=== PATIENT | male | born 1955 | race African-American/Black ===

== ENCOUNTER 2018-11-23 16:47 | Emergency (ER) | payer MEDICARE, OTHER ==
[~2018-11-23] VITALS: Ht 177.8 cm; Wt 99.8 kg
[~2018-11-23 16:47] MED LIST: IBUPROFEN600 MG ORAL; NORCO 5-325 TA1 EACH ORAL
--- NOTE | 2018-11-23 16:50 | NUR ---
ED Nurse Note: Patient walked into ED from home c/o left middle finger splinter that he sustained earlier today, patient rates his pain a 8/10 pain. Cybel notified of pain, patient presents with no fever, patient is alert and oriented x4, ambulatory with a steady gait, VSS. will wait for further orders
[2018-11-23] MEDS ORDERED: NKM (16:55)
[2018-11-23 17:00] VITALS: BP 119/83
[2018-11-23] MEDS ORDERED: CEPHALEXIN500 M1 ORAL (18:01)
[2018-11-23 18:05] VITALS: BP 125/82
--- NOTE | 2018-11-23 18:05 | NUR ---
ER DISCHARGE NOTE: Patient is cleared to be discharged per ERMD, pt is aox4, on room air, with stable vital signs. pt was given dc and prescription instructions, pt was able to verbalize understanding, pt id band removed without complications. pt is able to ambulate with steady gait. pt took all belongings.
--- NOTE | 2018-11-23 18:08 | Diagnostic Imaging Report ---
History: PAIN Exam: XR LEFT HAND 3 views Comparison: 12 08 2013 FINDINGS: No fracture or dislocation. Joint spaces appear within limits. IMPRESSION: No fracture or dislocation.
--- NOTE | 2018-11-23 18:46 | Emergency Room Report ---
History of Present Illness General Chief Complaint: Pain Source: Patient Present Illness HPI 63-year-old male complaining of left third finger pain since today. Patient states that he was working with wood and possibly may have gotten splinter underneath the fingernail. Pain is 8/10, with pressure. Denies numbness or weakness. Allergies: Coded Allergies: No Known Allergies (Unverified , 11/23/18) Patient History Past Medical History: other - chronic back pain Past Surgical History: none Social History: Denies: smoking, alcohol use, drug use Nursing Documentation-[facility] Past Medical History: No History, Except For Review of Systems All Other Systems: negative except mentioned in HPI Physical Exam Vital Signs Date Time Temp Pulse Resp B/P (MAP) Pulse Ox O2 Delivery O2 Flow Rate FiO2 11/23/18 16:52 98.2 87 18 119/83 (95) 97 Room Air Sp02 EP Interpretation: reviewed, normal General Appearance: no apparent distress, alert, GCS 15, non-toxic Respiratory: chest non-tender, lungs clear, normal breath sounds, speaking full sentences Cardiovascular #1: regular rate, rhythm, no edema Skin: other - left third finger: hyperpigmented line on middle of left third finger nail Medical Decision Making PA Attestation This patient was seen under the direct supervision of Dr. Herrera, who directed all aspects of care and diagnostic interpretation. Dr. Herrera examined the patient and agreed with ER course and disposition. Diagnostic Impression: Primary Impression: Finger pain ER Course ED course HPI: 63-year-old male complaining of left third finger pain since today. Patient states that he was working with wood and possibly may have gotten splinter underneath the fingernail. Pain is 8/10, with pressure. Denies numbness or weakness. Ddx: Foreign body, paronychia, cellulitis HPI & PE consistent with: Finger pain Orders/ Interventions: None Patient also seen and examined by Dr. Herrera, who agreed with no intervention indicated at this time. Disposition: Soak finger in warm water. Prescription for Keflex given, take as Rx. At this time pt. is stable for d/c to home. Will provide printed patient care instructions, and any necessary prescriptions. Care plan and follow up instructions have been discussed with the patient prior to discharge. Please note that this Emergency Department Report was dictated using Fan[employer] slide machine tender technology software, occasionally this can lead to erroneous entry secondary to interpretation by the dictation equipment. Other X-Ray Diagnostic Results Other X-Ray Diagnostic Results : X-Ray ordered: left hand # of Views/Limited Vs Complete: 3 View Indication: Pain EP Interpretation: Yes PA Xray: Interpretation reviewed, by supervising MD - Dr. Herrera Interpretation: no dislocation, no fractures, other - no foreign body Impression: No acute disease Electronically Signed by: Jonah Cook PA-C Last Vital Signs Date Time Temp Pulse Resp B/P (MAP) Pulse Ox O2 Delivery O2 Flow Rate FiO2 11/23/18 18:05 98.2 79 18 125/82 97 Room Air Status: unchanged Disposition: HOME, SELF-CARE Condition: Stable Scripts Cephalexin* (CEPHALEXIN*) 500 Mg Tablet 500 MG ORAL EVERY 8 HOURS for 7 Days, #21 CAP Prov: Jonah Cook 11/23/18 Referrals: [facility] (PCP) Patient Instructions: Fingertip Infection Additional Instructions: Take medication as prescribed. Follow-up with PCP in 2 days return to ER if worsening symptoms, new symptoms or sudden change in condition. Jonah Cook Nov 23, 2018 18:46
== END 2018-11-23 18:05 | disposition home or self-care (01) ==
LOC: EMR 18:00
DX: M79.645 Pain in left finger(s) (principal)
CPT/HCPCS: 99283

== ENCOUNTER 2018-12-06 16:42 | Emergency (ER) | payer MEDICARE, OTHER ==
[~2018-12-06] VITALS: Ht 170.2 cm; Wt 90.7 kg
[~2018-12-06 16:42] MED LIST changes: +CEPHALEXIN500 M1 ORAL; +NKM
[2018-12-06 16:58] VITALS: BP 162/103
--- NOTE | 2018-12-06 17:20 | NUR ---
ED Nurse Note: Patient walked into ED from home c/o unable to urinate since this morning. patient reports hx of BPH. patient is alert awake x4 ambulatory, breathing unlabored and even, speakin g in full sentences.
--- NOTE | 2018-12-06 17:30 | NUR ---
ED Nurse Note: RN inserted f/c coude size #16. Patient tolerated the procedure without difficulty. Patient reports decreased pain at this time.
--- NOTE | 2018-12-06 17:47 | NUR ---
ED Nurse Note: UA SENT TO LAB
[2018-12-06 18:13] LABS: APPEARANCE,URINE CLEAR; BILIRUBIN, URINE NEGATIVE (NEGATIVE); COLOR,URINE PALE YELLOW; GLUCOSE, URINE (UA) NEGATIVE (NEGATIVE); KETONES,URINE NEGATIVE (NEGATIVE); LEUKOCYTE ESTERASE ,URINE NEGATIVE (NEGATIVE); NITRITE,URINE NEGATIVE (NEGATIVE); PH,URINE 5 (4.5-8.0); PROTEIN,URINE 1+ (NEGATIVE); UROBILINOGEN,URINE NORMAL MG/DL (0.0-1.0)
--- NOTE | 2018-12-06 18:15 | Emergency Room Report ---
History of Present Illness General Chief Complaint: Male Urogenital Problems Present Illness HPI 63 YO male presents to the ED c/o 10/13 in severity lower abdominal pain with inability to urinate x 1 day. pt. denies fevers, chills, N/V, constipation or diarrhea. Pt. reports hx. of BPH and chronic back pain. Pt. reports that he drank beer and in the past when he drinks beer he has difficulty urinating. pt. denies hematuria or dysuria. Pt. states he is noncompliant with his BPH medications. No other aggravating or relieving factors at this time. pt. states his "bladder is very full". (Irina Phillips) Allergies: Coded Allergies: No Known Allergies (Unverified , 11/23/18) Patient History Past Medical History: see triage record, other - BPH, chronic back pain. Past Surgical History: none Pertinent Family History: none Reviewed Nursing Documentation: PMH: Agreed; PSxH: Agreed (Irina Phillips) Review of Systems All Other Systems: negative except mentioned in HPI (Irina Phillips) Physical Exam Vital Signs Date Time Temp Pulse Resp B/P (MAP) Pulse Ox O2 Delivery O2 Flow Rate FiO2 12/06/18 16:58 98.2 98 20 162/103 (122) 99 Sp02 EP Interpretation: reviewed, normal General Appearance: no apparent distress, alert, GCS 15, non-toxic Head: normocephalic, atraumatic Eyes: bilateral eye normal inspection, bilateral eye PERRL ENT: hearing grossly normal, normal voice Neck: full range of motion Respiratory: lungs clear, normal breath sounds, speaking full sentences Cardiovascular #1: regular rate, rhythm, no edema Gastrointestinal: normal bowel sounds, non tender, soft, non-distended, no guarding Genitourinary: normal inspection, no CVA tenderness, other - Black catheter now inserted. Musculoskeletal: back normal, gait/station normal, normal range of motion, non- tender Neurologic: alert, oriented x3, responsive, motor strength/tone normal, sensory intact, speech normal, grossly normal Psychiatric: judgement/insight normal Skin: no rash Lymphatic: no adenopathy (Irina Phillips) Medical Decision Making PA Attestation Dr. Hartman Is my supervising Physician whom patient management has been discussed with. (Irina Phillips) Medicare Attestation The history of Winston Raymundo has been reviewed and management options for him have been examined and discussed by Teetee Hartman. I have personally examined and interviewed the patient. (Teetee Hartman DO) Diagnostic Impression: Primary Impression: Urinary obstruction, unspecified ER Course 63 YO male presents to the ED c/o 10/13 in severity lower abdominal pain with inability to urinate x 1 day. pt. denies fevers, chills, N/V, constipation or diarrhea. Pt. reports hx. of BPH and chronic back pain. Pt. reports that he drank beer and in the past when he drinks beer he has difficulty urinating. pt. denies hematuria or dysuria. Pt. states he is noncompliant with his BPH medications. No other aggravating or relieving factors at this time. pt. states his "bladder is very full". Ddx considered but are not limited to BPH, UTI, urinary outlet obstruction, renal stone, cancer just to name a few. Vital signs: are WNL, pt. is afebrile H&PE are most consistent with urinary retention requiring Black catheter insertion. ORDERS: -UA: Unremarkable ED INTERVENTIONS: --Black catheter insertion--patient immediately had 400 cc of urine upon insertion. Patient reports his abdominal discomfort has subsided. DISCHARGE: At this time pt. is stable for d/c to home. Will provide printed patient care instructions, and any necessary prescriptions. Care plan and follow up instructions have been discussed with the patient prior to discharge. Labs Test 12/06/18 17:19 Urine Color Pale yellow Urine Appearance Clear Urine pH 5 (4.5-8.0) Urine Specific [place] 1.010 (1.005-1.035) Urine Protein 1+ (NEGATIVE) Urine Glucose (UA) Negative (NEGATIVE) Urine Ketones Negative (NEGATIVE) Urine Blood 1+ (NEGATIVE) Urine Nitrite Negative (NEGATIVE) Urine Bilirubin Negative (NEGATIVE) Urine Urobilinogen Normal MG/DL (0.0-1.0) Urine Leukocyte Esterase Negative (NEGATIVE) Urine RBC 2-4 /HPF (0 - 0) Urine WBC 0-2 /HPF (0 - 0) Urine Squamous Epithelial Cells None /LPF (NONE/OCC) Urine Bacteria Few /HPF (NONE) (Irina Phillips) Last Vital Signs Date Time Temp Pulse Resp B/P (MAP) Pulse Ox O2 Delivery O2 Flow Rate FiO2 12/06/18 16:58 98.2 98 20 162/103 (122) 99 (Irina Phillips) Disposition: HOME, SELF-CARE Condition: Stable Patient Instructions: Acute Urinary Retention, Male, [id number] Additional Instructions: Take any previously prescribed medications as directed. Follow up with a Primary Care Provider within 3 days For a referral to have UROLOGIST Evaluation, even if your symptoms have resolved. BLACK CATHETER TO BE REMOVED BY UROLOGIST THIS WAS PLACED EMERGENTLY DUE TO OBSTRUCTION AND REQUIRES URGENT FOLLOW UP and EVALUATION --Please review list of primary care clinics, if you do not already have a primary care provider Return sooner to ED if new symptoms occur, or current symptoms become worse. - Please note that this Emergency Department Report was dictated using Foldaxwarp worker technology software, occasionally this can lead to erroneous entry secondary to interpretation by the dictation equipment. Irina Phillips Dec 06, 2018 18:15 Teetee Hartman DO Dec 17, 2018 21:34
--- NOTE | 2018-12-06 19:13 | NUR ---
ED Nurse Note: received patient from [facility]. patient laying in bed with no acute distress. messer intact and patent; draining well to gravity. replaced drainage bag with leg bag. educated pt on how to drain bag; pt able to return demonstrate.
[2018-12-06 19:19] VITALS: BP 162/103
--- NOTE | 2018-12-06 19:20 | NUR ---
ER DISCHARGE NOTE: Patient is cleared to be discharged per ERMD, pt is aox4, on room air, with stable vital signs. pt was given dc and prescription instructions, pt was able to verbalize understanding, pt id bandremoved. pt is able to ambulate with steady gait. pt took all belongings.
== END 2018-12-06 19:20 | disposition home or self-care (01) ==
LOC: EMR 18:58
DX: N13.9 Obstructive and reflux uropathy, unspecified (principal); N40.0 Benign prostatic hyperplasia without lower urinary tract symptoms; G89.29 Other chronic pain; M54.9 Dorsalgia, unspecified; Z91.14 Patient's other noncompliance with medication regimen
CPT/HCPCS: 51702; 81003; 99284

== ENCOUNTER 2018-12-13 17:08 | Emergency (ER) | payer MEDICARE, OTHER ==
[~2018-12-13] VITALS: Ht 177.8 cm; Wt 95.3 kg
--- NOTE | 2018-12-13 17:37 | NUR ---
ED Nurse Note: pt presents to ED c/o blood in his urine x 1 day. pt reports having a catheter removed at his urologist's office yesterday. pt is a pt of Dr. Acevess urology) who he called and left a message for. pt describes that he went to urinate and "shot out" a couple of blood clots. pt denies any pain or swelling of his urethra.
[2018-12-13 18:27] LABS: APPEARANCE,URINE CLEAR; BILIRUBIN, URINE NEGATIVE (NEGATIVE); COLOR,URINE PALE YELLOW; GLUCOSE, URINE (UA) NEGATIVE (NEGATIVE); KETONES,URINE NEGATIVE (NEGATIVE); LEUKOCYTE ESTERASE ,URINE 2+ (NEGATIVE); NITRITE,URINE NEGATIVE (NEGATIVE); PH,URINE 6.5 (4.5-8.0); PROTEIN,URINE 1+ (NEGATIVE); UROBILINOGEN,URINE NORMAL MG/DL (0.0-1.0)
--- NOTE | 2018-12-13 18:44 | Emergency Room Report ---
History of Present Illness General Chief Complaint: Male Urogenital Problems Source: Medical Record (Magnus Guzman) Present Illness HPI 63-year-old male with no significant past medical history who was here at [facility] few days ago had a Philippe catheter placed due to being unable to urinate here complaining of hematuria x1 day. Patient reports that he went to his urologist yesterday removed. Patient has blood in urine and has been having some intermittent clotting however reports that today he started getting better denies any painful urination and frequency however feels pressure at the tip of his penis. Reports that he feels like there is a clot in there and he is requesting x-ray or some sort of imaging of the penile area. Denies fever and chills, flank pain, nausea vomiting. Patient sitting comfortably with stable vital signs. Patient has an upcoming appointment with urologist. Also has history of BPH and currently takes medication. (Magnus Guzman) Allergies: Coded Allergies: No Known Allergies (Unverified , 11/23/18) Patient History Past Medical History: see triage record Past Surgical History: unable to obtain Pertinent Family History: none Immunizations: UTD Reviewed Nursing Documentation: PMH: Agreed; PSxH: Agreed (Magnus Guzman) Nursing Documentation-PMH Past Medical History: No History, Except For (Magnus Guzman) Review of Systems All Other Systems: negative except mentioned in HPI (Magnus Guzman) Physical Exam Vital Signs Date Time Temp Pulse Resp B/P (MAP) Pulse Ox O2 Delivery O2 Flow Rate FiO2 12/13/18 17:47 98.2 75 16 140/84 (102) 95 Room Air Sp02 EP Interpretation: reviewed, normal General Appearance: no apparent distress, alert, GCS 15, non-toxic Head: normocephalic, atraumatic Eyes: bilateral eye normal inspection, bilateral eye PERRL ENT: hearing grossly normal, normal pharynx, no angioedema, normal voice Neck: full range of motion, supple/symm/no masses Respiratory: chest non-tender, lungs clear, normal breath sounds, no rhonchi, speaking full sentences Cardiovascular #1: normal inspection, normal peripheral pulses, regular rate, rhythm, no murmur Gastrointestinal: normal inspection, normal bowel sounds, non tender, soft Rectal: deferred Genitourinary: normal inspection, no CVA tenderness Musculoskeletal: back normal, gait/station normal, normal range of motion, non- tender Neurologic: alert, oriented x3, responsive, motor strength/tone normal, sensory intact, speech normal Psychiatric: judgement/insight normal, memory normal, mood/affect normal, no suicidal/homicidal ideation Skin: no rash Lymphatic: no adenopathy (Magnus Guzman) Medical Decision Making PA Attestation Diagnosis and treatment plans were reviewed and discussed with my supervising physician Dr. Herrera (Magnus Guzman) Medicare Attestation The history of Winston Raymundo has been reviewed and management options for him have been examined and discussed by Neal Herrera. I have personally examined and interviewed the patient. (Neal Herrera MD) Diagnostic Impression: Primary Impression: UTI (urinary tract infection) Additional Impression: Hematuria ER Course 63-year-old male with no significant past medical history who was here at [facility] few days ago had a Philippe catheter placed due to being unable to urinate here complaining of hematuria x1 day. Patient reports that he went to his urologist yesterday removed. Patient has blood in urine and has been having some intermittent clotting however reports that today he started getting better denies any painful urination and frequency however feels pressure at the tip of his penis. Reports that he feels like there is a clot in there and he is requesting x-ray or some sort of imaging of the penile area. Denies fever and chills, flank pain, nausea vomiting. Patient sitting comfortably with stable vital signs. Patient has an upcoming appointment with urologist. Also has history of BPH and currently takes medication. Ddx considered but are not limited to: UTI, pylonephritis, urinary incontinence , prolapsed bladder, hematuria, Vital signs: are WNL, pt. is afebrile H&PE are most consistent with: UTI, hematuria ORDERS: UA, urine cx, Keflex ED INTERVENTIONS: Keflex DISCHARGE: At this time pt. is stable for d/c to home. Will provide printed patient care instructions, and any necessary prescriptions. Care plan and follow up instructions have been discussed with the patient prior to discharge. Advised patient to follow-up with his urologist at this time no further imaging or assessment needed as this is normal to have blood in urine after Philippe catheter removal and also due to Philippe placement patient has also developed a minor UTI and to be treated with antibiotics. Also if worsening symptoms or bleeding return to the emergency room. (Magnus Guzman) Last Vital Signs Date Time Temp Pulse Resp B/P (MAP) Pulse Ox O2 Delivery O2 Flow Rate FiO2 12/13/18 17:47 98.2 75 16 140/84 (102) 95 Room Air (Magnus Guzman) Disposition: HOME, SELF-CARE Condition: Stable Scripts Cephalexin* (KEFLEX*) 500 Mg Capsule 500 MG ORAL EVERY 6 HOURS for 7 Days, #28 CAP Prov: Magnus Guzman 12/13/18 [facility] ([facility]) Patient Instructions: Hematuria, Adult, Urinary Tract Infection Additional Instructions: Follow-up with your urologist regarding blood in your urine as well as pressure to you feel in the penile area your urologist need to use a camera to go inside penile shaft for observation of any abnormality. At this time there is no gross hematuria noted and you are sitting comfortably with stable vital signs no further emergent evaluation is needed at this time. Magnus Guzman Dec 13, 2018 18:44 Neal Herrera MD Dec 17, 2018 07:33
[2018-12-13] MEDS ORDERED: CEPHALEXIN500 MG ORAL (18:45)
[2018-12-13 18:59] VITALS: BP 140/84
--- NOTE | 2018-12-13 18:59 | NUR ---
ER DISCHARGE NOTE: Patient is cleared to be discharged per ERMD, pt is aox4, on room air, with stable vital signs. pt was given dc and prescription instructions to f/u with Dr. Breaux tomorrow, pt was able to verbalize understanding, pt id band and iv site removed without complications. pt is able to ambulate with steady gait. pt took all belongings. Addendum: 12/13/18 at 1917 by STEVE ER DISCHARGE NOTE: Patient is cleared to be discharged per ERMD, pt is aox4, on room air, with stable vital signs. pt was given dc and prescription instructions, pt was able to verbalize understanding, pt id band removed without complications. pt is able to ambulate with steady gait. pt took all belongings.
[2018-12-13] MEDS ORDERED: Cephalexin 500mg cap ORAL ONE (19:00)
[2018-12-13] MEDS ORDERED: Cephalexin 250mg/5ml Susp 100mL Bottle ORAL ONE (19:00)
== END 2018-12-13 18:59 | disposition home or self-care (01) ==
LOC: EMR 17:40
DX: N39.0 Urinary tract infection, site not specified (principal); R31.9 Hematuria, unspecified; N40.0 Benign prostatic hyperplasia without lower urinary tract symptoms
CPT/HCPCS: 81001; 99283

== ENCOUNTER 2020-04-09 09:40 | Emergency (ER) | payer MEDICARE, OTHER ==
[~2020-04-09] VITALS: Ht 177.8 cm; Wt 108.9 kg
[~2020-04-09 09:40] MED LIST changes: +CEPHALEXIN500 MG ORAL
--- NOTE | 2020-04-09 10:30 | NUR ---
ED Nurse Note:pt. c/o cough for 2 weeks, he was in contact with covid positive person, VSS, no SOB no fever on arrival
--- NOTE | 2020-04-09 10:37 | Emergency Room Report ---
History of Present Illness General Chief Complaint: Upper Respiratory Illness Source: Patient Present Illness HPI Disclaimer: Please note that this report is being documented using [email or web address] technology. This can lead to erroneous entry secondary to incorrect interpretation by the dictating instrument. HPI: 65-year-old male history of BPH presents for mild cough. He states he had a mild cough for the past few weeks. His brother was diagnosed with COVID-19. Recently. He denies any shortness of breath. Cough is dry. No nausea vomiting or diarrhea. Tolerating oral intake. Allergies: Coded Allergies: No Known Allergies (Unverified , 11/23/18) COVID-19 Screening Contact w/high risk pt: Yes Experienced COVID-19 symptoms?: Yes COVID-19 Testing performed DYSLEXIA TEACHER: No Review of Systems All Other Systems: negative except mentioned in HPI Physical Exam Vital Signs Date Time Temp Pulse Resp B/P (MAP) Pulse Ox O2 Delivery O2 Flow Rate FiO2 04/09/20 10:06 98.1 96 18 128/84 (99) 96 Room Air 04/09/20 10:30 99 Sp02 EP Interpretation: reviewed, normal General Appearance: well appearing, no apparent distress Head: normocephalic, atraumatic Eyes: bilateral eye PERRL, bilateral eye EOMI ENT: hearing grossly normal, moist mucus membranes Neck: full range of motion, supple Respiratory: lungs clear, normal breath sounds, no rhonchi, no respiratory distress, no retraction, no wheezing Cardiovascular #1: normal peripheral pulses, regular rate, rhythm, no murmur Gastrointestinal: non tender, soft, non-distended, no guarding Neurologic: alert, oriented x3, no focal defects Skin: normal color, warm/dry Medical Decision Making Diagnostic Impression: Primary Impression: Upper respiratory infection ER Course Patient presents with signs and symptoms of COVID-19. Mainly dry cough and exposure to a person with COVID-19. He was in no distress. He was not hypoxic. Normal exam. Chest x-ray completed showed no obvious large infiltrate. At this time I do not believe patient requires further treatment. I recommended p.o. hydration. Tylenol as needed for pain or fever. And home isolation. Chest X-Ray Diagnostic Results Chest X-Ray Diagnostic Results : Chest X-Ray Ordered: Yes # of Views/Limited/Complete: 1 View Indication: Other - Cough EP Interpretation: Yes Interpretation: no consolidation, no effusion - Yes, no pneumothorax Impression: No acute disease - right 15 minutes nodular 20 minutes I mean I can but like in any like Electronically Signed by: Binh Talavera MD Last Vital Signs Date Time Temp Pulse Resp B/P (MAP) Pulse Ox O2 Delivery O2 Flow Rate FiO2 04/09/20 10:30 Room Air 99 04/09/20 10:06 98.1 96 18 128/84 (99) 96 Disposition: HOME, SELF-CARE Condition: Stable Referrals: [facility] (PCP) Binh Talavera M.D. Apr 09, 2020 10:37
[2020-04-09 11:36] VITALS: BP 125/83
--- NOTE | 2020-04-09 11:36 | NUR ---
ED Nurse Note: Pt cleared by health care Provider for discharge. DC instructions was given and explained to pt and verbalized understanding of teachings. All medical deviecs such as ID band removed. Pt is AAO x4, ambulatory and left with all personal belongings.
--- NOTE | 2020-04-09 12:55 | Diagnostic Imaging Report ---
Procedure: XRAY Chest 1v Reason for study: Reason For Exam: SOB Comparison films: None. FINDINGS: A single one view chest is obtained. Vascularity is normal. The lung alberto are clear bilaterally. Cardiac and mediastinal silhouette are within normal limits. CP angles are sharp. The bony thorax appear unremarkable. IMPRESSION: NO ACUTE CARDIOPULMONARY DISEASE.
== END 2020-04-09 11:40 | disposition home or self-care (01) ==
LOC: EMR 10:11
DX: J06.9 Acute upper respiratory infection, unspecified (principal); R05 Cough; Z20.822 Contact with and (suspected) exposure to COVID-19
CPT/HCPCS: 71045; 99283